=== PATIENT | female | born 1995 | race Caucasian/White ===

== ENCOUNTER 2019-08-02 10:41 | Emergency (ER) | payer MEDICAID, SELFPAY ==
[2019-08-02 10:52] VITALS: BP 149/90; PULSE 95; TEMP 36.8; O2SAT 100
[2019-08-02 13:10] LABS: Abs Immature Grans 0.01 k/cumm (0.0-0.09); Absolute Basophil Count 0.01 k/cumm (0.0-0.2); Absolute Eosinophil Count 0.02 k/cumm (0.0-0.7); Absolute Monocyte Count 0.54 k/cumm (0.11-0.7); Basophils % 0.2; Eosinophils % 0.3; HGB 14.5 g/dL (12.0-15.5); Immature Grans % 0.2 %; Lymphocytes % 35.6; Mean Corp. HGB Concentration 33.7 g/dL (32.0-36.0); Mean Corpuscular Hemoglobin 31.5 pg (27.0-33.0); Mean Corpuscular Volume 93.5 fL (80-95); Monocytes % 8.7; Platelet Count 176 x1000/uL (130-400); RBC Distribution Width 12.6 % (11.7-14.6); White Blood Cell Count 6.18 k/cumm (4.4-10.8)
[2019-08-02 13:23] LABS: ALT 19 U/L (14-59); AST 20 U/L (15-37); Albumin 4.1 g/dL (3.4-5.0); Alkaline Phosphatase 95 U/L (46-116); BUN 8 mg/dL (7-18); Bilirubin, Total 0.6 mg/dL (0.2-1.0); CREATININE 0.88 mg/dL (0.55-1.02); Calcium 8.4 mg/dL (8.5-10.1); Chloride 104 mmol/L (98-107); Glucose 85 mg/dL (74-106); Potassium 3.7 mmol/L (3.5-5.1); Sodium 141 mmol/L (136-145); Total Protein 7.2 g/dL (6.4-8.2)
--- NOTE | 2019-08-04 10:56 | W.ED.GENAD ---
Discharge Plan Disposition Patient Disposition: HOME Condition: Stable Discharge Details Chief Complaint: Cellulitis Clinical Impression: Cat-scratch disease Primary Care Provider: Eduardo Rajan ED Provider: Lu Moscoso Home Meds and New Rx's Prescriptions: New rifampin 300 mg capsule 300 mg PO BID Qty: 20 RF: 0 azithromycin 250 mg tablet See Rx Instructions .ROUTE .COMPLEX Qty: 11 RF: 0 miconazole nitrate [Miconazole 7] 2 % cream 1 appful VG QHS 7 Days RF: 0 No Action drospirenone-ethinyl estradiol [Loryna (28)] 1 EACH tablet 1 tab PO DAILY RF: 0 albuterol sulfate [Ventolin HFA] 60 PUFF HFA aerosol inhaler 2 puff Inhalation DIRECTED RF: 0 (DME) inhalational spacing device [OptiChamber Advantage] 1 EACH spacer 1 ea Miscellaneous DIRECTED RF: 0 Discharge Instructions Instructions: Cat Scratch Disease (ED) Additional Instructions: Drink plenty of fluids. Use antibiotics as prescribed. Monistat if needed for symptomatic relief. Follow-up with your doctor on Tuesday as discussed. Rest activities as tolerated. Hold control for 1 month until stop antibiotics due to interactions, use additional form of control until restarting and for the following month. Return for any increased swelling or pain in the digit as discussed. Return for any worsening, concerns or alarming symptoms sooner if needed Discharge Data Discharge Date/Time-TO BE ENTERED AT DEPARTURE: 08/02/19 15:05 Medical Decision Making This is a 24-year-old patient presenting to the emergency room after having multiple cat scratches to her right hand recently specifically the second digit. Patient reports she had an area of drainage which was present which has since healed over. Patient reports no diffuse swelling to the finger fat pad on the right second digit for which she is concerned about a focal infection. Patient denies any difficulty with range of motion of the finger only sensitivity to the fat pad. No obvious drainage. Flexion extension intact. Patient does have associated right axillary lymphadenopathy which is mildly tender without fluctuation or sign of overlying cellulitis. Cervical lymphadenopathy also noted on the right. Patient denies fevers or chills is nontoxic-appearing, vital signs reviewed, patient afebrile. Patient did report an episode of flushing this morning which has since fully resolved. Patient also reported an episode of low upper quadrant pain noted lasting approximately 1 to 2 hours which she attributed to an upset stomach. Patient reports that has also improved. Patient denies any confusion, headaches or dizziness. Patient concerned with the possibility of a focal infection in her finger. Given patient's initial presentation she does have a area of focal cellulitis to the finger pad without obvious fluctuance or associated Tenosynovitis of the right second digit. Patient does have another pustule present on the finger proximal to the fat pad overlying the middle phalanx again no pustular or drainage present. Patient with notable tender lymphadenopathy in the axilla leading me to believe that cat scratch disease is most likely. Again patient is nontoxic-appearing. Mild abdominal complain which were more this morning are improved. Patient has a mild tenderness noted in the left upper quadrant but no peritoneal signs, rebound or guarding. Patient has no CVA tenderness. Patient has no neurologic complaints at this time. After review of up-to-date recommendation for mild diseases azithromycin for 5 days however when considering her development of transient flushing and left upper quadrant pain this morning I am concerned that she may be developing a very mild disseminated disease therefore I will plan to treat with both azithromycin and rifampin per up-to-date recommendations for 10 days. Patient agrees with this plan of care. I considered ultrasounding patient's left upper quadrant however after discussion with Laureano Alvarez he does not feel imaging is necessary at this time given patient is not ill-appearing, afebrile and nontoxic. Spoke with PCP covering patient's office Dr. Rajan, who will follow up with the patient on Tuesday for reevaluation. Patient encouraged conservative treatments in addition to antibiotics. Given interactions with patient's control recommended to use a second form of control and hold on her current control until completion of antibiotic then restarting again with a second use of control until her control medications are fully reinitiated. Patient is also requesting a treatment for Diflucan for yeast infection which typically does not develops when she takes oral antibiotics. Patient at risk for QT prolongation on Diflucan EKG obtained which does reveal a QTC of 465. Given her very mild elevation of her QTC I will hold on Diflucan and recommend for topical treatment instead with Monistat. Patient made aware of this and agrees with plan of care. Patient also recommended wound management soaking and observation for worsening swelling or pustular development on the finger. Will defer any procedure incision and drainage or aspiration at this time. Patient agrees with this plan of care. The patient was stable and requested discharge. Prior to discharge, my usual and customary return precautions were reviewed with the patient - this included follow-up instructions and reasons to return to the Emergency Department if conditions worsens, does not improve as expected, or other new concerns arise. HPI General Date/Time Provider Initiated Documentation: 08/02/19 11:11. HPI Narrative: Is a very pleasant 24-year-old woman presenting to the emergency room for concerns of a cat scratch to her right second digit which occurred greater than 1 week ago. Patient reports she had a small pustule which drained open and healed over now she is noting increase in swelling to the area. Patient reports diffuse redness to the finger fat pad of the right second digit with another small area of redness noted proximally. Patient denies fever or chills but did report mild flushing today. Patient did report onset of mild left upper quadrant pain which has since improved. Patient was concerned with the possibility of developing infection in the finger. Patient does have full range of motion of the finger and hand. Denies any other concerns or complaints at this time. Denies any upper respiratory infections. Denies any headaches dizziness confusion or weakness. Patient denies any measured fever. Patient feeling well otherwise. Related Data Home Medications Medication Instructions Recorded Confirmed albuterol sulfate [Ventolin HFA] 2 puff INHALATION DIRECTED inh 03/24/17 08/02/19 drospirenone-ethinyl estradiol 1 tab PO DAILY 03/24/17 08/02/19 [Loryna (28)] inhalational spacing device kit 03/24/17 [OptiChamber Advantage] azithromycin See Rx Instructions .ROUTE 08/02/19 .COMPLEX #11 tab miconazole nitrate [Miconazole 7] 1 appful VG QHS 7 Days gm 08/02/19 rifampin 300 mg PO BID #20 cap 08/02/19 Previous Rx's Medication Instructions Recorded albuterol sulfate [Ventolin HFA] 2 puff INHALATION DIRECTED inh 03/24/17 inhalational spacing device kit 03/24/17 [OptiChamber Advantage] azithromycin See Rx Instructions .ROUTE 08/02/19 .COMPLEX #11 tab miconazole nitrate [Miconazole 7] 1 appful VG QHS 7 Days gm 08/02/19 rifampin 300 mg PO BID #20 cap 08/02/19 Allergies Allergy/AdvReac Type Severity Reaction Status Date / Time Penicillins Allergy Intermediate Hives Unverified 08/02/19 10:56 General Stated Complaint: Cellulitis MARIANA: 4 Review of Systems All systems reviewed & are unremarkable except as noted in HPI and below Constitutional Constitutional: Denies chills, Denies fatigue, Denies fever(s), Denies headache(s), Denies malaise and Denies weakness ENT Ears, Nose, Mouth, and Throat: Denies dizziness and Denies headache(s) Musculoskeletal Musculoskeletal: Denies abnormal gait and Denies numbness Integumentary/Breasts Skin/Breast: Reports erythema, Denies photosensitivity, Reports skin swelling and Reports wounds Neurologic Neurologic: Denies abnormal speech, Denies abnormal gait, Denies behavioral changes, Denies confusion, Denies dizziness, Denies headache(s), Denies numbness and Denies weakness Psychiatric Psychiatric: Denies behavioral changes and Denies confusion Endocrine Endocrine: Denies fatigue Hematologic/Lymphatic Hematologic/Lymphatic: Reports lymphadenopathy [facility] Social History Smoking/Tobacco Use Status: Former Tobacco Use Alcohol Intake: never Drug use: Occasionally Substance use type: marijuana Do you feel safe at home: Yes Do you feel safe in your relationship?: Yes Exam Narrative Exam Narrative: CONST: Healthy appearing patient, in no acute distress. Well hydrated. Alert and oriented. Afebrile HENMT: Head nomocephalic, normal to inspection. Atraumatic. Hearing grossly normal. TMs appear normal bilaterally, no pharyngeal erythema EYES: General normal appearance. Alignment normal. Eyelids normal. Conjunctiva normal. NECK: Normal visual inspection. FROM. Trachea midline. No Midline tenderness. Cervical lymphadenopathy is noted, mild tenderness on the right CHEST: Normal insepection of the chest. RESP: Normal respiratory effort. Speaking full sentences. No cough. No audible wheezing. No retractions. Breath sounds clear, full and equal bilaterally, no wheezing, rhonchi or rales CARDIO: No JVD. No murmur. Regular rate and rhythm MUSCULOSKELETAL: Normal Gait. FROM of all extremities. GI: Abdomen is soft, very minimal left upper quadrant/epigastric discomfort with palpation, no rebound, guarding or peritoneal signs. SKIN: Normal. Dry. No rashes. Right second digit with multiple small abrasions. Patient with diffuse erythema and mild swelling of the fat pad of the right second digit with no associated Janey synovitis. No focal area of fluctuation. Flexion extension intact. Another small area of erythema noted over the middle phalanx on the palmar aspect of the digit. No obvious drainage. No obvious pustules. No involvement of the hand or wrist. Lymph: Right axillary lymph nodes present which are mildly tender. No fluctuance. No overlying skin changes. Left axillary no isolated lymph nodes or tenderness. NEURO: Alert and awake. Speech clear. PSYCH: Normal affect. Cooperative. Course Vital Signs Vital signs: Vital Signs Temperature 36.8 C 08/02/19 10:52 Pulse 95 H 08/02/19 10:52 Blood Pressure 149/90 H 08/02/19 10:52 Pulse Oximetry 100 08/02/19 10:52 Temperature 36.8 C 08/02/19 10:52 Temperature Source Temporal Artery Scan 08/02/19 10:52 Pulse 95 H 08/02/19 10:52 Respiratory Effort Non-Labored 08/02/19 10:54 Blood Pressure 149/90 H 08/02/19 10:52 Blood Pressure Position Sitting 08/02/19 10:52 Pulse Oximetry 100 08/02/19 10:52 Oxygen Delivery Method Room Air 08/02/19 10:52 Oxygen Flow Rate 0 08/02/19 10:52 Pain Level 7 08/02/19 15:04 Lab/Test Results Lab/Test Results: 08/02/19 13:00 Blood Blood Culture - Preliminary NO GROWTH 24 HOURS 08/02/19 12:50 Blood Blood Culture - Preliminary NO GROWTH 24 HOURS Laboratory Tests Range/Units 08/02/19 08/02/19 12:50 12:50 WBC (4.4-10.8) k/cumm 6.18 RBC (4.00-5.20) m/cumm 4.60 Hgb (12.0-15.5) g/dL 14.5 Hct (36.0-46.0) % 43.0 MCV (80-95) fL 93.5 MCH (27.0-33.0) pg 31.5 MCHC (32.0-36.0) g/dL 33.7 RDW (11.7-14.6) % 12.6 Plt Count (130-400) x1000/uL 176 MPV (8.0-11.0) fL 11.0 Immature Gran % % 0.2 Neutrophils % 55.0 Lymphocytes % 35.6 Monocytes % 8.7 Eosinophils % 0.3 Basophils % 0.2 Absolute Neutrophils (1.2-6.7) k/cumm 3.40 Absolute Lymphocytes (1.2-3.4) k/cumm 2.20 Absolute Monocytes (0.11-0.7) k/cumm 0.54 Absolute Eosinophils (0.0-0.7) k/cumm 0.02 Absolute Basophils (0.0-0.2) k/cumm 0.01 Sodium (136-145) mmol/L 141 Potassium (3.5-5.1) mmol/L 3.7 Chloride (98-107) mmol/L 104 Carbon Dioxide (21.0-32.0) mmol/L 27.0 Anion Gap (3-11) mmol/L 10.0 BUN (7-18) mg/dL 8 Creatinine (0.55-1.02) mg/dL 0.88 Estimated GFR/1.73 m2 (mL/min/1.73m2) >= 60.00 Glucose (74-106) mg/dL 85 Calcium (8.5-10.1) mg/dL 8.4 L Total Bilirubin (0.2-1.0) mg/dL 0.6 AST (15-37) U/L 20 ALT (14-59) U/L 19 Alkaline Phosphatase (46-116) U/L 95 Total Protein (6.4-8.2) g/dL 7.2 Albumin (3.4-5.0) g/dL 4.1
== END 2019-08-02 15:05 | disposition home or self-care (01) ==
PROVIDERS: Emergency Provider Physician Assistant; PCP Internal Medicine
DX: L03.011 Cellulitis of right finger (principal); A28.1 Cat-scratch disease; R59.0 Localized enlarged lymph nodes; W55.03XA Scratched by cat, initial encounter; R23.2 Flushing; R10.12 Left upper quadrant pain
CPT/HCPCS: 36415; 80053; 87040; 99283; 85025

== ENCOUNTER 2020-01-07 10:52 | Outpatient (REF) | payer MEDICAID, SELFPAY ==
[2020-01-07 21:55] LABS: ALT 24 U/L (14-59); AST 22 U/L (15-37); Albumin 4.4 g/dL (3.4-5.0); Alkaline Phosphatase 124 U/L (46-116); Anion Gap 11.4 mmol/L (3-11); BUN 11 mg/dL (7-18); Bilirubin, Total 0.6 mg/dL (0.2-1.0); CO2 24.6 mmol/L (21.0-32.0); CREATININE 0.75 mg/dL (0.55-1.02); Calcium 9.2 mg/dL (8.5-10.1); Calculated LDL 82 mg/dL (<100); Chloride 104 mmol/L (98-107); Cholesterol 176 mg/dL (<200); Glucose 80 mg/dL (74-106); HDL Cholesterol 86 mg/dL (40-60); Potassium 3.8 mmol/L (3.5-5.1); Sodium 140 mmol/L (136-145); Total Protein 7.4 g/dL (6.4-8.2); Triglyceride 42 mg/dL (<150)
== END 2020-01-07 11:12 ==
LOC: NCHCN 10:52
PROVIDERS: PCP Nurse Practitioner Family; Visit Provider Nurse Practitioner Family
DX: R14.0 Abdominal distension (gaseous) (principal); R19.7 Diarrhea, unspecified; M79.671 Pain in right foot; Z83.3 Family history of diabetes mellitus; Z13.220 Encounter for screening for lipoid disorders
CPT/HCPCS: 80053; 80061

== ENCOUNTER 2020-03-21 17:31 | Outpatient (REF) | payer MEDICAID, SELFPAY ==
[2020-03-24 03:47] LABS: Patient Race White; SARS-CoV-2 RNA Undetected (Undetected); SARS-CoV-2 Specimen Source Nasal
== END 2020-03-21 17:51 ==
LOC: NCHCN 17:31
PROVIDERS: PCP Nurse Practitioner Family; Visit Provider Nurse Practitioner Family
DX: Z20.828 Contact with and (suspected) exposure to other viral communicable diseases (principal)
CPT/HCPCS: U0003

== ENCOUNTER 2020-04-01 16:00 | Outpatient (REF) | payer MEDICAID, SELFPAY ==
[2020-04-05 03:37] LABS: Patient Race White; SARS-CoV-2 RNA Undetected (Undetected); SARS-CoV-2 Specimen Source Nasal
== END 2020-04-01 16:20 ==
LOC: NCHCN 16:00
PROVIDERS: PCP Nurse Practitioner Family; Visit Provider Nurse Practitioner Family
DX: Z20.828 Contact with and (suspected) exposure to other viral communicable diseases (principal)
CPT/HCPCS: U0003

== ENCOUNTER 2020-07-14 00:47 | Outpatient (CLI) | payer MEDICAID, SELFPAY ==
--- NOTE | 2020-07-14 | DI.RAD_ITS ---
EXAM: XR CERVICAL SPINE COMP 4-5V CLINICAL HISTORY: CHRONIC PAIN, M54.9. TECHNIQUE: 2D digital imaging was performed. COMPARISON: No exams were available for comparison FINDINGS: There is no evidence of fracture or listhesis but there is significant reversal of the normal curvatu re having epicenter at C5-6 level. There is normal disc height at each level in the cervical spine i ncluding C5-6. No facet arthropathy evident. . Subtle suggestion of small right-sided Luschka join t osteophytes at C5-6 level. No cervical ribs. No osseous lesions. IMPRESSION: Although there is normal disc height at each level, there is subtle evidence of significant degenerat navya disc disease at C5-6. There is also significant reversal of the curvature of the cervical spine at this level. Recommend follow-up MRI. DATA REPOSITORY: RADIATION DOSE DELIVERED:
--- NOTE | 2020-07-14 | DI.RAD_ITS ---
EXAM: XR THORACIC SPINE COMPLETE CLINICAL HISTORY: CHRONIC BACK PAIN, M54.9. TECHNIQUE: 2D digital imaging was performed. COMPARISON: Chest x-ray July 2010 was reviewed FINDINGS: There is no evidence of compression fracture nor listhesis. No disc space narrowing. No abnormal wi dening of the paraspinal lines. There is very mild screw [place] convex right evident. No osse ous lesions. IMPRESSION: DATA REPOSITORY: RADIATION DOSE DELIVERED:
--- NOTE | 2020-07-14 | DI.RAD_ITS ---
EXAM: XR LUMBAR SPINE COMPLETE CLINICAL HISTORY: CHRONIC BACK PAIN, M54.9. TECHNIQUE: 2D digital imaging was performed. COMPARISON: No exams were available for comparison FINDINGS: There is no evidence of fracture, listhesis, or pars interarticularis defects. All the disc spaces i n the lumbar spine exhibit normal height. Facet joints appear unremarkable as do the sacroiliac join ts. Bone density is normal. There are no osseous lesions. IMPRESSION: No significant radiograph findings in the lumbosacral spine. DATA REPOSITORY: RADIATION DOSE DELIVERED:
== END 2020-07-14 00:48 ==
LOC: DI 00:47
PROVIDERS: PCP Nurse Practitioner Family; Visit Provider Nurse Practitioner Family
DX: G89.29 Other chronic pain (principal); M54.9 Dorsalgia, unspecified; M40.292 Other kyphosis, cervical region
CPT/HCPCS: 72050; 72072; 72110

== ENCOUNTER 2020-11-14 19:57 | Outpatient (REF) | payer MEDICAID, SELFPAY ==
[2020-11-15 10:34] LABS: COVID-19 RT-PCR UVMMC Result Negative (Negative)
== END 2020-11-14 19:58 | disposition home or self-care (01) ==
LOC: LBN 19:57
PROVIDERS: PCP Nurse Practitioner Family; Visit Provider Nurse Practitioner Family
DX: Z20.822 Contact with and (suspected) exposure to COVID-19 (principal); J06.9 Acute upper respiratory infection, unspecified
CPT/HCPCS: U0003

== ENCOUNTER 2021-07-21 17:48 | Emergency (ER) | payer MEDICAID, SELFPAY ==
[2021-07-21 17:53] VITALS: BP 148/101; PULSE 130; RESP 16; TEMP 36.6; O2SAT 98
--- NOTE | 2021-07-21 17:53 | W.ED.GENAD ---
Discharge Plan Disposition Patient Disposition: HOME Condition: Stable Discharge Details Clinical Impression: Laceration of scalp Primary Care Provider: Mirta Jain ED Provider: Cori Alfonso Home Meds and New Rx's Prescriptions: No Action drospirenone-ethinyl estradiol [Loryna (28)] 1 EACH tablet 1 tab PO DAILY 0RF albuterol sulfate [Ventolin HFA] 60 PUFF HFA aerosol inhaler 2 puff Inhalation DIRECTED 0RF Label Comments: 03/30/17 pt states that she used up her inhaler (DME) inhalational spacing device [OptiChamber Advantage] 1 EACH spacer 1 ea Miscellaneous DIRECTED 0RF rifampin 300 mg capsule 300 mg PO BID Qty: 20 0RF azithromycin 250 mg tablet See Rx Instructions .ROUTE .COMPLEX Qty: 11 0RF Rx Instructions: take 500 mg today (day 1), then 250 mg for 9 days (days 2-5) Medical Decision Making Patient is a pleasant 26-year-old female presenting today with chief complaint of scalp laceration. She reports a prior to arrival she had excellently stood up into a door jam and caught the top of her head. States that there was a sharp edge that she cut herself on. She denies any headache or loss of consciousness. However, she was concerned that she appeared to have copious blood loss. Immediately applied pressure. States that she lives approximately 5 minutes from the hospital on came here to be evaluated. Patient is not anticoagulated, no known coagulopathy. She states that her last tetanus was within the last calendar year. She denies other injury at the time of the incident. On exam, patient appears quite anxious. She is tachycardic at 130 but again, this appears to be anxiety driven. Her scalp was approximately 3 cm in length, linear wound. This does not appear significantly deep. No active bleeding. The pressure she applied seems to have done quite well for hemostasis. Did not note any surrounding ecchymosis, swelling. No evidence to suggest skull fracture. Cranial nerves are intact. No neurological deficit. No evidence of facial trauma, teeth are intact and aligned well. No cervical spine tenderness or thoracic spine tenderness with midline palpation. No step-offs, full range of motion. Patient I discussed risk/benefits as well as expected procedural steps stated with closure. She voiced understanding and wishes to proceed. Please see procedure note. Patient tolerated this well. Wound was anesthetized with lidocaine with epinephrine. This sufficiently anesthetized the area. Wound was explored to base in a bloodless field no foreign body or debris noted. Copiously irrigated with sterile saline. Wound was closed using standard sterile technique with balta. At patient's request, I did speak with her boyfriend, Issac [phone] and relayed what was going on. Patient was so anxious when she first came in, I am allowing some of her adrenaline side more recheck vital signs and plan to discharge home shortly. Patient eating and drinking in the department. Plain left ankle applied. She is feeling significantly calmer and is requesting discharge at this time. I do feel that this is her.. Again, I do not see any indication of deep structure involvement, intracranial hemorrhage, skull fracture. Most consistent with simple laceration which did have significant bleeding initially, but has been closed with balta. Patient I discussed wound care conservative care in the. We discussed return precautions. She does live with significant other who will continue to monitor the wound for her. She will return in 1 week for suture removal. All of her questions and concerns were addressed and she is agreement this plan peer Discharge instructions given via [employer] secondary to EMR issue. HPI General Date/Time Provider Initiated Documentation: 07/21/21 17:52. History of Present Illness 26 year old F presents to the emergency department with the chief complaint of scalp laceration, described as mild, with intensity rated at 2. Quality is described as aching, and is localized to the head. Patient reports no radiation. Patient started experiencing this minute(s) and it has been constant. improves with No relieving factors improve symptom(s), No exacerbating factors reported . Patient notes no other symptoms.. Patient did receive the following treatments prior to arrival, other (has applied pressure to the wound) Related Data Home Medications Medication Instructions Recorded Confirmed albuterol sulfate 90 mcg/actuation 2 puff INHALATION DIRECTED inh 03/24/17 08/02/19 aerosol inhaler (Ventolin HFA) drospirenone 3 mg-ethinyl 1 tab PO DAILY 03/24/17 08/02/19 estradiol 0.02 mg tablet (Loryna (28)) inhalational spacing device kit 03/24/17 (OptiChamber Advantage) azithromycin 250 mg tablet See Rx Instructions .ROUTE 08/02/19 .COMPLEX #11 tab rifampin 300 mg capsule 300 mg PO BID #20 cap 08/02/19 Previous Rx's Medication Instructions Recorded albuterol sulfate 90 mcg/actuation 2 puff INHALATION DIRECTED inh 03/24/17 aerosol inhaler (Ventolin HFA) inhalational spacing device kit 03/24/17 (OptiChamber Advantage) azithromycin 250 mg tablet See Rx Instructions .ROUTE 08/02/19 .COMPLEX #11 tab rifampin 300 mg capsule 300 mg PO BID #20 cap 08/02/19 Allergies Allergy/AdvReac Type Severity Reaction Status Date / Time Penicillins Allergy Intermediate Hives Unverified 08/02/19 10:56 General MARIANA: 4 Review of Systems Constitutional Constitutional: Reports as per HPI, Denies chills and Denies fever(s) Musculoskeletal Musculoskeletal: Reports as per HPI Integumentary/Breasts Skin/Breast: Reports as per HPI Neurologic Neurologic: Reports as per HPI, Denies sensory deficit and Denies paresthesias PFSH All Active Problems (Updated 07/21/21 @ 19:51 by RANDY Bethea) Laceration of scalp (Acute) Social History Smoking/Tobacco Use Status: Former Tobacco Use Smoking risk assessment performed?: Yes Alcohol Intake: never Drug use: Occasionally Substance use type: marijuana Do you feel safe at home: Yes Do you feel safe in your relationship?: Yes Exam Const General: cooperative, healthy appearing, comfortable, well developed and anxious Nutritional Appearance: average body habitus and well nourished Orientation: alert and awake [facility] Head: no palpable skull fracture, normocephalic, no Richardson's sign, laceration, no occipital foramen tenderness, no palpable skull fracture, no raccoon eyes and no scalp tenderness Ears: hearing grossly normal bilaterally, external ears normal and TM's normal bilaterally General nose exam: external nose normal Face and sinus: normal facial exam, sinuses nontender and face symmetric Mouth: oral mucosae normal and lip normal Teeth and gingiva: dentition normal Eyes General: appearance normal, both eyes and all related structures Neck Neck: normal visual inspection and full ROM Resp Effort & Inspection: normal respiratory effort, able to speak in complete sentences and no respiratory distress Cardio Rate: regular rate Rhythm: regular rhythm Skin Trauma: laceration (3cm linear laceration on top of scalp) Neuro General: patient alert and patient awake Cranial Nerves: CN's II-XI intact bilaterally Cognition: normal cognition Speech: speech normal Gait: normal gait Sensory Exam: no sensory deficits noted Psych Appearance: grossly normal and well kempt Mental Status: mental status grossly normal Speech and Movement: speech and movement normal Procedures Laceration Laceration 1: Site: scalp Size (cm): 3 Description: linear Depth: simple, single layer Local Anesthetic: Lidocaine 1% and with Epi Amount of anesthesia used (mL): 6 Pre-repair: wound explored, irrigated extensively and deep structures intact Skin layer closed with: other (balta) Number of sutures: 3
[2021-07-21 18:27] VITALS: BP 159/98; PULSE 101; RESP 18
== END 2021-07-21 18:39 | disposition home or self-care (01) ==
PROVIDERS: Emergency Provider Physician Assistant; PCP Nurse Practitioner Family
DX: S01.01XA Laceration without foreign body of scalp, initial encounter (principal); W22.09XA Striking against other stationary object, initial encounter
CPT/HCPCS: 12002

== ENCOUNTER 2021-07-29 09:49 | Emergency (ER) | payer MEDICAID, SELFPAY ==
[2021-07-29 10:07] VITALS: BP 129/73; PULSE 86; RESP 16; TEMP 36.8; O2SAT 99
--- NOTE | 2021-07-29 10:22 | ED.GENADUL_ITS ---
Discharge Plan Discharge Details Chief Complaint: SutureRem Primary Care Provider: Mirta Jain ED Provider: Noah Rodríguez Home Meds and New Rx's Prescriptions: No Action drospirenone-ethinyl estradiol [Loryna (28)] 1 EACH tablet 1 tab PO DAILY 0RF albuterol sulfate [Ventolin HFA] 60 PUFF HFA aerosol inhaler 2 puff Inhalation DIRECTED 0RF Label Comments: 03/30/17 pt states that she used up her inhaler (DME) inhalational spacing device [OptiChamber Advantage] 1 EACH spacer 1 ea Miscellaneous DIRECTED 0RF rifampin 300 mg capsule 300 mg PO BID Qty: 20 0RF azithromycin 250 mg tablet See Rx Instructions .ROUTE .COMPLEX Qty: 11 0RF Rx Instructions: take 500 mg today (day 1), then 250 mg for 9 days (days 2-5) Discharge Data Discharge Date/Time-TO BE ENTERED AT DEPARTURE: 07/29/21 10:24 Medical Decision Making 3 balta removal without any incident plan wound appears to be healing well. Continue monitoring of wound was discussed along with return and follow-up precautions. HPI General Mode of arrival: ambulatory . Date/Time Provider Initiated Documentation: 07/29/21 10:00 . Limitations to Documentation: no limitations . Information obtained by: old records reviewed . History of Present Illness 26 year old F presents to the emergency department with the chief complaint of staple removal, Quality is described as other (denies pain), Patient started experiencing this day(s) (8) and it has been constant. Patient notes no other symptoms.. Patient did receive the following treatments prior to arrival, none Related Data Home Medications Medication Instructions Recorded Confirmed albuterol sulfate 90 mcg/actuation 2 puff INHALATION DIRECTED inh 03/24/17 08/02/19 aerosol inhaler (Ventolin HFA) drospirenone 3 mg-ethinyl 1 tab PO DAILY 03/24/17 08/02/19 estradiol 0.02 mg tablet (Loryna (28)) inhalational spacing device kit 03/24/17 (OptiChamber Advantage) azithromycin 250 mg tablet See Rx Instructions .ROUTE 08/02/19 .COMPLEX #11 tab rifampin 300 mg capsule 300 mg PO BID #20 cap 08/02/19 Previous Rx's Medication Instructions Recorded albuterol sulfate 90 mcg/actuation 2 puff INHALATION DIRECTED inh 03/24/17 aerosol inhaler (Ventolin HFA) inhalational spacing device kit 03/24/17 (OptiChamber Advantage) azithromycin 250 mg tablet See Rx Instructions .ROUTE 08/02/19 .COMPLEX #11 tab rifampin 300 mg capsule 300 mg PO BID #20 cap 08/02/19 Allergies Allergy/AdvReac Type Severity Reaction Status Date / Time Penicillins Allergy Intermediate Hives Unverified 08/02/19 10:56 General Stated Complaint: SutureRem MARIANA: 5 Review of Systems Constitutional Constitutional: Denies chills, Denies fever(s) and Denies headache(s) ENT Ears, Nose, Mouth, and Throat: Denies headache(s) Integumentary/Breasts Skin/Breast: Denies rash and Denies skin swelling Neurologic Neurologic: Denies headache(s) PFSH All Active Problems (Updated 07/21/21 @ 19:51 by RANDY Bethea) Laceration of scalp (Acute) Social History Smoking/Tobacco Use Status: Former Tobacco Use Smoking risk assessment performed?: Yes Alcohol Intake: never Drug use: Occasionally Substance use type: marijuana Do you feel safe at home: Yes Do you feel safe in your relationship?: Yes Exam Const General: cooperative, comfortable and no acute distress Orientation: alert, awake and oriented x3 Resp Effort & Inspection: normal respiratory effort and able to speak in complete sentences Skin Rashes: no rashes Trauma: laceration (healing well laceration without erythema, purulence, or dehiscence.) Neuro General: patient alert, patient awake and patient oriented x3 Cognition: normal cognition Course Vital Signs Vital signs: Vital Signs Temperature 36.8 C 07/29/21 10:07 Pulse 86 07/29/21 10:07 Respiratory Rate 16 07/29/21 10:07 Blood Pressure 129/73 07/29/21 10:07 Pulse Oximetry 99 07/29/21 10:07 Temperature 36.8 C 07/29/21 10:07 Temperature Source Skin 07/29/21 10:07 Pulse 86 07/29/21 10:07 Respiratory Rate 16 07/29/21 10:07 Respiratory Effort 07/29/21 10:10 Blood Pressure 129/73 07/29/21 10:07 Pulse Oximetry 99 07/29/21 10:07 Oxygen Delivery Method Room Air 07/29/21 10:07 Oxygen Flow Rate 0 07/29/21 10:07 Pain Level 0 07/29/21 10:07
== END 2021-07-29 10:24 ==
LOC: ER 10:10
PROVIDERS: Emergency Provider Nurse Practitioner Family; PCP Nurse Practitioner Family
DX: S01.01XD Laceration without foreign body of scalp, subsequent encounter (principal); X58.XXXD Exposure to other specified factors, subsequent encounter; Z48.02 Encounter for removal of sutures

== ENCOUNTER 2023-01-12 09:05 | Outpatient (REF) | payer MEDICAID, SELFPAY ==
[2023-01-12 15:45] LABS: Abs Immature Grans 0.01 10^3/uL (0.0-0.06); Absolute Basophil Count 0.02 10^3/uL (0.0-0.2); Absolute Eosinophil Count 0.02 10^3/uL (0.0-0.7); Absolute Lymphocyte Count 2.12 10^3/uL (1.2-3.4); Absolute Monocyte Count 0.46 10^3/uL (0.1-0.8); Absolute Neutrophil Count 2.67 10^3/uL (1.2-6.7); Basophils % 0.4; Eosinophils % 0.4; HCT 42.6 % (36.0-46.0); HGB 14.8 g/dL (11.2-15.7); Immature Grans % 0.2; MCH 32.9 pg (27.0-33.0); MCHC 34.7 % (32.0-36.0); MCV 95 fL (80-95); MPV 11.1 fL (8.0-11.0); Monocytes % 8.7; Neutrophils % 50.3; Platelet Count 207 10^3/uL (130-400); RDW-SD 41.7 fL
[2023-01-12 16:35] LABS: ALT 18 U/L (14-59); AST 15 U/L (15-37); Albumin 4.1 g/dL (3.4-5.0); Alkaline Phosphatase 79 U/L (46-116); Anion Gap 9.9 mmol/L (3-11); BUN 6 mg/dL (7-18); Bilirubin, Total 0.7 mg/dL (0.2-1.0); CO2 26.1 mmol/L (21.0-32.0); CREATININE 0.9 mg/dL (0.55-1.02); Calculated LDL 69 mg/dL (<100); Chloride 106 mmol/L (98-107); Cholesterol 164 mg/dL (<200); Estimated GFR 88.75 (mL/min/1.73m2); Glucose 96 mg/dL (74-106); HDL Cholesterol 87 mg/dL (40-60); Potassium 4.1 mmol/L (3.5-5.1); Sodium 142 mmol/L (136-145); TSH (W/Ref FT4) 1.31 uIU/mL (0.36-3.74); Total Protein 6.9 g/dL (6.4-8.2); Triglyceride 41 mg/dL (<150)
== END 2023-01-12 09:06 | disposition home or self-care (01) ==
LOC: NCHCN 09:05
PROVIDERS: PCP Nurse Practitioner Family; Visit Provider Nurse Practitioner Family
DX: R63.5 Abnormal weight gain (principal); R03.0 Elevated blood-pressure reading, without diagnosis of hypertension; J06.9 Acute upper respiratory infection, unspecified; Z13.220 Encounter for screening for lipoid disorders
CPT/HCPCS: 80053; 80061; 84443; 85025

== ENCOUNTER 2023-03-29 12:30 | Outpatient (REF) | payer MEDICAID, SELFPAY ==
--- NOTE | 2023-03-29 11:25 | PAPFT_PTH ---
PATIENT: Mary Rivera LOC: [facility] U#:[id number] AGE/SX: 28/F ROOM: RE03/29/[address]: ADINA CROSS : 1995 BED: DIS: 03/29/2023 SPEC #: [id number] RECD: 03/29/23 18:32 STATUS: ESPINOZA REQ #: [id number] SALINAS: 03/29/23 11:[address]: Adina Cross DEPT: [facility] Cytology RECD BY: Belen Terrell ENTERED: 03/29/23 18:32 SP TYPE: PAPFT OTHR DR: Mirta Jain Tissues: 1 - CX/ENDOCX FOR PAP SMEARS Procedures: PAP THIN PREP/[facility] Screening HPV DNA PROBE Comments: [id number]
== END 2023-03-29 12:31 | disposition home or self-care (01) ==
LOC: NCHCN 12:30
PROVIDERS: PCP Nurse Practitioner Family; Visit Provider Nurse Practitioner Family
DX: Z12.4 Encounter for screening for malignant neoplasm of cervix (principal); Z11.51 Encounter for screening for human papillomavirus (HPV)
CPT/HCPCS: 88142; 87624

== ENCOUNTER 2024-03-30 11:47 | Outpatient (REF) | payer OTHER, SELFPAY ==
[2024-03-30 16:21] LABS: Abs Immature Grans 0.01 10^3/uL (0.0-0.06); Absolute Basophil Count 0.02 10^3/uL (0.0-0.2); Absolute Eosinophil Count 0.05 10^3/uL (0.0-0.7); Absolute Lymphocyte Count 1.62 10^3/uL (1.2-3.4); Absolute Monocyte Count 0.37 10^3/uL (0.1-0.8); Basophils % 0.5 %; Eosinophils % 1.2 %; HCT 43.3 % (36.0-46.0); HGB 14.6 g/dL (11.2-15.7); Immature Grans % 0.2 %; Lymphocytes % 37.9 %; MCH 31.7 pg (27.0-33.0); MCHC 33.7 % (32.0-36.0); MCV 94 fL (80-95); MPV 10.8 fL (8.0-11.0); Monocytes % 8.7 %; Neutrophils % 51.5 %; Platelet Count 194 10^3/uL (130-400); RDW 11.5 % (11.7-14.6); RDW-SD 39.4 fL; WBC 4.27 10^3/uL (4.4-10.8)
[2024-03-30 16:58] LABS: Hemoglobin A1C 5.1 % (<5.7)
[2024-03-30 16:59] LABS: ALT 29 U/L (14-59); AST 24 U/L (15-37); Albumin 4.3 g/dL (3.4-5.0); Alkaline Phosphatase 102 U/L (46-116); Anion Gap 10.8 mmol/L (3-11); BUN 14 mg/dL (7-18); Bilirubin, Total 0.57 mg/dL (0.2-1.0); CO2 28.2 mmol/L (21.0-32.0); CREATININE 0.9 mg/dL (0.55-1.02); Calcium 9.4 mg/dL (8.5-10.1); Chloride 103 mmol/L (98-107); Estimated GFR 87.65 (mL/min/1.73m2); FREE T4 0.78 ng/dL (0.76-1.46); Glucose 84 mg/dL (74-106); Potassium 3.7 mmol/L (3.5-5.1); Sodium 142 mmol/L (136-145); TSH 2.13 uIU/mL (0.36-3.74); Total Protein 7.9 g/dL (6.4-8.2)
== END 2024-03-30 11:48 | disposition home or self-care (01) ==
LOC: NCHCN 11:47
PROVIDERS: PCP Nurse Practitioner Family; Visit Provider Nurse Practitioner Family
DX: R63.5 Abnormal weight gain (principal); R01.1 Cardiac murmur, unspecified
CPT/HCPCS: 80053; 83036; 84439; 84443; 85025